=== PATIENT | female | born 1975 | race Caucasian/White ===

== ENCOUNTER → 2017-01-01 | Outpatient (CLI) | payer OTHER ==
[2017-01-01 19:00] LABS: Rheumatoid Factor, Qnt <9 IU/mL (<12)
[2017-01-01 19:46] LABS: Vitamin B12 257 pg/mL (239-931)
[2017-01-02 00:37] LABS: ANA w/Reflex to Titer NEGATIVE (NEGATIVE)
== END ==
LOC: MMGSC 16:14
PROVIDERS: ATTEND Family Medicine
DX: R53.83 Other fatigue (principal)
CPT/HCPCS: 36415; 82306; 82607; 86038; 86431

== ENCOUNTER → 2017-02-05 | Outpatient (CLI) | payer OTHER ==
[2017-02-05 16:56] LABS: Anisocytosis Slight; Basophils # (A) 0.1 k/uL (0-0.2); Basophils % (A) 0 %; CH 24.8; CHCM 30.8; Eosinophils # (A) 0.2 k/uL (0-0.7); Eosinophils % (A) 1 %; HCT 40.4 % (34.0-46.0); HDW 2.67; HGB 12.3 gm/dL (11.4-16.0); Hypochromasia Moderate; Luc # (Auto) 0.29; Luc % (Auto) 3; Lymphocytes # (A) 2.5 k/uL (1.0-4.8); Lymphocytes % (A) 24 %; MCH 24.7 pg (25.0-35.0); MCHC 30.5 g/dL (31.0-37.0); MCV 81.1 fL (80.0-100.0); Mean Platelet Volume 8.3; Microcytosis Slight; Monocytes # (A) 0.7 k/uL (0-1.0); Monocytes % (A) 7 %; Neutrophils % (A) 65 %; RBC 4.99 m/uL (3.80-5.40); RDW 17.8 % (11.5-15.5); WBC 10.8 k/uL (3.8-10.6)
[2017-02-05 16:58] LABS: Anion Gap 13 mmol/L; Blood Urea Nitrogen 16 mg/dL (7-17); Carbon Dioxide 20 mmol/L (22-30); Chloride 107 mmol/L (98-107); Glucose 88 mg/dL (74-99); Potassium 4.9 mmol/L (3.5-5.1); Sodium 140 mmol/L (137-145)
[2017-02-05 16:59] LABS: ALT 31 U/L (9-52); AST 18 U/L (14-36); Alkaline Phosphatase 97 U/L (38-126); Calcium 9.4 mg/dL (8.4-10.2); Cholesterol 202 mg/dL (<200); HDL Cholesterol 40 mg/dL (40-60); Non-African American GFR(MDRD) >60 (>60 ml/min/1.73 sqM); Total Bilirubin 0.4 mg/dL (0.2-1.3); Total Protein 7.2 g/dL (6.3-8.2); Triglycerides 126 mg/dL (<150)
== END | disposition home or self-care (01) ==
LOC: MMGSC 10:34
PROVIDERS: ATTEND Family Medicine
DX: E03.9 Hypothyroidism, unspecified (principal); I26.99 Other pulmonary embolism without acute cor pulmonale; M79.1 Myalgia; M25.50 Pain in unspecified joint
CPT/HCPCS: 36415; 80053; 80061; 84439; 84443; 85025

== ENCOUNTER 2023-12-29 07:52 | Emergency (ER) | payer OTHER ==
[2023-12-29 08:03] VITALS: TEMP 98.3
--- NOTE | 2023-12-29 08:22 | ED ---
General Adult HPI - General Chief complaint: Upper Respiratory Infection Stated complaint: ABBY Time Seen by Provider: 12/29/23 08:10 Source: patient, RN notes reviewed, old records reviewed Mode of arrival: ambulatory Limitations: no limitations - History of Present Illness Initial comments: Patient is a 48-year-old female presents emergency department complaining of cough, congestion for the last few days. Also endorses some chest tightness and shortness of breath which is general secondary to the cough and congestion. Patient's granddaughter has had upper respiratory symptoms previously and she was watching her. She denies any nausea, vomiting, diarrhea. Denies any abdominal pain. Patient is a chronic tobacco user but no previously diagnosed COPD. Has a history of hypothyroidism but has been noncompliant with her medications as she ran out and her physician is no longer practicing. She has a hoarse voice with, with productive sputum cough.. Denies sore throat. Endorses nasal congestion. Denies any other acute complaints at this time. Presents for further evaluation. - Related Data Home Medications Medication Instructions Recorded Confirmed Ibuprofen [Motrin Ib] 200 - 400 mg PO Q8H PRN 12/29/23 12/29/23 Levothyroxine Sodium [Synthroid] 150 mcg PO DAILY 12/29/23 12/29/23 Previous Rx's Medication Instructions Recorded Albuterol Inhaler [Ventolin Hfa 2 puff INHALATION Q6H PRN #1 each 12/29/23 Inhaler] Azithromycin [Zithromax] 250 mg PO DAILY 4 Days #4 tab 12/29/23 Levothyroxine Sodium [Synthroid] 150 mcg PO DAILY 30 Days #30 tab 12/29/23 predniSONE [Deltasone] 40 mg PO DAILY 5 Days #10 tab 12/29/23 Allergies Allergy/AdvReac Type Severity Reaction Status Date / Time aspirin Allergy Unknown Verified 12/29/23 10:11 Childhood hydromorphone [From Dilaudid] Allergy Rash/Hives Verified 12/29/23 10:11 latex Allergy Rash/Hives Verified 12/29/23 10:11 Penicillins Allergy Unknown Verified 12/29/23 10:11 Childhood strawberry Allergy "mouth Verified 12/29/23 10:11 itches" Review of Systems ROS Statement: Those systems with pertinent positive or pertinent negative responses have been documented in the HPI. Review of Systems: CONST: Denies fever EYES: Denies blurry vision ENT: Endorses nasal congestion C/V: Denies Chest pain RESP: Endorses cough, congestion GI: Denies abdominal pain : Denies dysuria SKIN: Denies rash. MSK: Denies joint pain. NEURO: Denies headache ROS Other: All systems not noted in ROS Statement are negative. Past Medical History Past Medical History: Thyroid Disorder History of Any Multi-Drug Resistant Organisms: None Reported Past Surgical History: Section, Cholecystectomy Past Psychological History: Depression Smoking Status: Current every day smoker Past Alcohol Use History: Occasional Past Drug Use History: None Reported General Exam - General Exam Comments Initial Comments: General: Appears in no acute distress. HEAD: Normal with no signs of head trauma. EYES: PERRLA, EOMI ENT: Hearing grossly intact, normal oropharynx. RESPIRATORY: Bilateral end expiratory wheezing. No hypoxia on room air. No increased work of breathing. C/V: Regular rate and rhythm. S1 and S2 auscultated, peripheral pulses 2+ and intact throughout ABD: Abd is soft, nontender, nondistended EXT: Normal range of motion, no obvious deformity SKIN: No rashes or lesions observed on exposed skin. NEURO: Alert and oriented x 4. Limitations: no limitations Course Vital Signs 12/29/23 12/29/23 12/29/23 07:57 08:17 10:03 Temperature 98.3 F Pulse Rate 85 81 Respiratory 16 20 Rate Blood Pressure 162/96 O2 Sat by Pulse 95 Oximetry 12/29/23 12/29/23 10:13 10:18 Temperature Pulse Rate 80 86 Respiratory 20 Rate Blood Pressure 130/86 O2 Sat by Pulse 96 Oximetry Medical Decision Making - Medical Decision Making Was pt. sent in by a medical professional or institution (, PA, BUSINESS REPRESENTATIVE, urgent care, hospital, or jail...) When possible be specific @ -No Did you speak to anyone other than the patient for history (EMS, parent, family, police, friend...)? What history was obtained from this source @ -No Did you review nursing and triage notes (agree or disagree)? Why? @ -I reviewed and agree with nursing and triage notes Were old charts reviewed (outside hosp., previous admission, EMS record, old EKG, old radiological studies, urgent care reports/EKG's, jail records)? Report findings @ -No old charts were reviewed Differential Diagnosis (chest pain, altered mental status, abdominal pain women, abdominal pain men, vaginal bleeding, weakness, fever, dyspnea, syncope, headache, dizziness, GI bleed, back pain, seizure, CVA, palpatations, mental health, musculoskeletal)? @ -COVID, flu, RSV, COPD, pneumonia. This list is not all inclusive. EKG interpreted by me (3pts min.). @ -None done X-rays interpreted by me (1pt min.). @ -Chest x-ray shows no obvious acute cardiopulmonary process. Some cardiomegaly and atypical findings suggestive of may be pneumonia or possible pulmonary vascular congestion that is very mild, symptoms are more suggestive of upper respiratory infection with congestion, hoarse voice, productive cough CT interpreted by me (1pt min.). @ -None done U/S interpreted by me (1pt. min.). @ -None done What testing was considered but not performed or refused? (CT, X-rays, U/S, labs)? Why? @ -None What meds were considered but not given or refused? Why? @ -None Did you discuss the management of the patient with other professionals (professionals i.e. , PA, BUSINESS REPRESENTATIVE, lab, RT, psych nurse, pediatric social worker, roller structural mill, teacher, combatant diver officer, case management social worker)? Give summary @ -No Was smoking cessation discussed for >3mins.? @ -No Was critical care preformed (if so, how long)? @ -No Were there social determinants of health that impacted care today? How? (Homelessness, low income, unemployed, alcoholism, drug addiction, transportation, low edu. Level, literacy, decrease access to med. care, long term, rehab)? @ -No Was there de-escalation of care discussed even if they declined (Discuss DNR or withdrawal of care, Hospice)? DNR status @ -No What co-morbidities impacted this encounter? (DM, HTN, Smoking, COPD, CAD, Cancer, CVA, ARF, Chemo, Hep., AIDS, mental health diagnosis, sleep apnea, morbid obesity)? @ -Chronic tobacco use Was patient admitted / discharged? Hospital course, mention meds given and route, prescriptions, significant lab abnormalities, going to OR and other pertinent info. @ -Based on patient's presentation and physical exam, presents emergency department complaining of cough, congestion. Appears to have mild COPD and I am concerned for upper respiratory illness at this time. She will be given a breathing treatment we will obtain viral swabs and chest x-ray. She was in agreement this plan. Vital signs currently within acceptable limits. She is also asking for refill on her levothyroxine medication. This will be provided with 1 refill. Viral swabs negative. Chest x-ray shows possible CHF. Clinically, patient presents as a upper respiratory infection after discussion, no worsening lower extremity swelling, no orthopnea, no PND. She has a productive cough with hoarse voice and congestion. I did discuss this with the patient she expressed understanding. She was given a breathing treatment, started on steroids as well as an antibiotic for tracheobronchitis. Strict return precautions discussed. I did refill her thyroid medication. She was in agreement this plan. Patient provided with a prescription for prednisone, albuterol inhaler, levothyroxine, azithromycin. I instructed the patient to follow up with their PCP in the next 1-3 days. I explained that the patient should return to the emergency department if they experience any worsening symptoms. Strict return precautions were discussed with the patient. The patient expressed understanding of these instructions. I answered all questions that the patient had. The patient was discharged home in [good] condition with their prescriptions and follow up information. Undiagnosed new problem with uncertain prognosis? @ -No Drug Therapy requiring intensive monitoring for toxicity (Heparin, Nitro, Insulin, Cardizem)? @ -No Were any procedures done? @ -No Diagnosis/symptom? @ -Medication refill, COPD, tracheobronchitis Acute, or Chronic, or Acute on Chronic? @ -Acute Uncomplicated (without systemic symptoms) or Complicated (systemic symptoms)? @ -Complicated Side effects of treatment? @ -No Exacerbation, Progression, or Severe Exacerbation? @ -No Poses a threat to life or bodily function? How? (Chest pain, [place], [place], pneumonia, PE, COPD, DKA, ARF, appy, cholecystitis, CVA, Diverticulitis, Homicidal, Suicidal, threat to staff... and all critical care pts) @ -Unlikely - Lab Data Lab Results 12/29/23 Range/Units 08:16 Influenza Type A (PCR) Not Detected (Not Detectd) Influenza Type B (PCR) Not Detected (Not Detectd) RSV (PCR) Not Detected (Not Detectd) SARS-CoV-2 (PCR) Not Detected (Not Detectd) Disposition Clinical Impression: Tracheobronchitis, COPD (chronic obstructive pulmonary disease), Medication refill Disposition: HOME SELF-CARE Condition: Good Instructions (If sedation given, give patient instructions): COPD (Chronic Obstructive Pulmonary Disease) (ED) Prescriptions: predniSONE [Deltasone] 40 mg PO DAILY 5 Days #10 tab Levothyroxine Sodium [Synthroid] 150 mcg PO DAILY 30 Days #30 tab Albuterol Inhaler [Ventolin Hfa Inhaler] 2 puff INHALATION Q6H PRN #1 each PRN Reason: Dyspnea Azithromycin [Zithromax] 250 mg PO DAILY 4 Days #4 tab Is patient prescribed a controlled substance at d/c from ED?: No Referrals: None,Stated [Primary Care Provider] - 1-2 days Forms: Area PCPs Time of Disposition: 09:40
--- NOTE | 2023-12-29 08:41 | XR ---
EXAMINATION TYPE: XR chest 2V DATE OF EXAM: 12/29/2023 8:31 AM CLINICAL INDICATION:Female, 48 years old with history of cough; [facility] COMPARISON: Chest radiographs from TECHNIQUE: XR chest 2V Frontal and lateral views of the chest. FINDINGS: Lungs/Pleura: There is no evidence of pleural effusion, focal consolidation, or pneumothorax. Pulmonary vascularity: Pulmonary vascular congestion. Heart/mediastinum: Cardiomediastinal silhouette is enlarged and stable. Musculoskeletal: No acute osseous pathology. IMPRESSION: Cardiomegaly and mild pulmonary vascular congestion. Correlate with BNP for congestive heart failure.
[2023-12-29 08:57] VITALS: RESP 20
[2023-12-29] MEDS: predniSONE 20 MG TAB PO STA (09:53)
[2023-12-29] MEDS: AZITHROMYCIN 500 MG TAB PO STA (09:53)
[2023-12-29] MEDS: IPRATROPIUM-ALBUTEROL 3 ML NEB INHALATION STA (10:03)
[2023-12-29 10:52] VITALS: PULSE 86
[2023-12-29 10:53] VITALS: BP 130/86
== END 2023-12-29 10:18 | disposition home or self-care (01) ==
LOC: EC 07:52
DX: J44.9 Chronic obstructive pulmonary disease, unspecified (principal); Z76.0 Encounter for issue of repeat prescription; F17.200 Nicotine dependence, unspecified, uncomplicated; Z88.0 Allergy status to penicillin; Z88.5 Allergy status to narcotic agent; Z88.8 Allergy status to other drugs, medicaments and biological substances; Z91.018 Allergy to other foods
CPT/HCPCS: 94640; 87636; 71046; 99285; J7512

== ENCOUNTER → 2024-01-17 | Outpatient (CLI) | payer OTHER ==
--- NOTE | 2024-01-17 17:36 | CA ---
Transthoracic Echo Report Name: Radha Fuentes Age: 48 Gender: F : 1975 Exam Date: 01/17/2024 17:06 Exam Location: [place] [facility] Ht (in): 62 Wt (lb): 248 Ordering Physician: Hilton Weeks DO Attending/Referring Phys: Hilton Weeks DO Senior [employer] Developer Zuly Menjivar, CHLOE Procedure CPT: Indications: R93.89 ABNORMAL FINDINGS ON DX IMAGING OF OTH BODY Cardiac Hx: Technical Quality: Technically difficult study Contrast 1: Total Dose (mL): Contrast 2: Total Dose (mL): MEASUREMENTS (Male / Female) Normal Values 2D ECHO LV Diastolic Diameter PLAX 5.6 cm 4.2 - 5.9 / 3.9 - 5.3 cm LV Systolic Diameter PLAX 3.8 cm IVS Diastolic Thickness 1.7 cm 0.6 - 1.0 / 0.6 - 0.9 cm LVPW Diastolic Thickness 1.3 cm 0.6 - 1.0 / 0.6 - 0.9 cm LV Relative Wall Thickness 0.5 M-MODE Aortic Root Diameter MM 2.8 cm LA Systolic Diameter MM 3.4 cm LA Ao Ratio MM 1.2 DOPPLER AV Peak Velocity 192.7 cm/s AV Peak Gradient 14.9 mmHg AV Mean Velocity 115.0 cm/s AV Mean Gradient 6.5 mmHg AV Velocity Time Integral 33.3 cm AI Peak Velocity 467.3 cm/s AI Peak Gradient 87.4 mmHg AI Pressure Half Time 498.0 ms LVOT Peak Velocity 123.5 cm/s LVOT Peak Gradient 6.1 mmHg LVOT Velocity Time Integral 20.6 cm MV Area PHT 2.6 cm??? Mitral E Point Velocity 59.3 cm/s Mitral A Point Velocity 108.4 cm/s Mitral E to A Ratio 0.5 MV Deceleration Time 295.8 ms MV E' Velocity 7.0 cm/s Mitral E to MV E' Ratio 8.5 FINDINGS Left Ventricle Severely increased septal wall thickness. Mildly increased posterior wall thickness. Mildly increased left ventricular diastolic diameter. Normal left ventricular systolic function with no obvious regional wall motion abnormalities. Left ventricular ejection fraction is estimated at 55-60 %. Right Ventricle Right ventricle not well visualized. Right Atrium Normal right atrial size. Left Atrium Normal left atrial size. Mitral Valve Structurally normal mitral valve. Mild mitral regurgitation. Aortic Valve Aortic valve not well visualized. No aortic stenosis. Mild aortic regurgitation. Tricuspid Valve Structurally normal tricuspid valve. Mild tricuspid regurgitation. Pulmonic Valve Structurally normal pulmonic valve. Pericardium Minimal pericardial effusion (normal variant). Aorta Normal size aortic root and proximal ascending aorta. CONCLUSIONS Normal LV function Small pericardial effusion Mild aortic regurgitation Mild mitral and tricuspid regurgitation Previewed by: Dr. Navjot Cox MD (Electronically Signed) Final Date: 17 January 2024 17:35
== END | disposition home or self-care (01) ==
LOC: RADECHMAIN 17:04
PROVIDERS: ATTEND Family Medicine
DX: R93.89 Abnormal findings on diagnostic imaging of other specified body structures (principal); I31.39 Other pericardial effusion (noninflammatory); I08.2 Rheumatic disorders of both aortic and tricuspid valves
CPT/HCPCS: 93306